=== PATIENT | female | born 1950 | race Caucasian/White ===

== ENCOUNTER 2021-07-12 18:07 | Observation (INO) ==
[2021-07-12 18:54] LABS: Hematocrit 47.9 % (35.3-44.9); Hemoglobin 15.8 g/dL (11.5-15.4); Immature Granulocytes % 0.2 % (0-4); Lymphocytes % 25.3 %; Mean Corpuscular Volume 90.9 fL (83.0-100.0); Mean Platelet Volume 9.7 fL (9.4-12.4); Platelet Count 175 K/mcL (140-400); Red Blood Count 5.27 M/mcL (3.82-4.97); Red Cell Distribution Width 12.5 % (11.5-14.5); Segmented Neutrophils % 64.5 %; White Blood Count 6.4 K/mcL (4.3-11.1)
[2021-07-12 18:55] LABS: Basophils % 0.5 %; Eosinophils # 0.1 K/mcL (0.0-0.6); Eosinophils % 1.3 %; Lymphocytes # 1.6 K/mcL (0.6-4.6); Monocytes # 0.5 K/mcL (0.0-1.3); Monocytes % 8.2 %; Neutrophils # 4.1 K/mcL (1.6-8.9)
[2021-07-12 19:15] LABS: BUN/Creatinine Ratio 16 (6-26); Blood Urea Nitrogen 12 mg/dL (8-23); Calcium 10.1 mg/dL (8.6-10.3); Carbon Dioxide 27 mEq/L (23-29); Chloride 106 mEq/L (98-107); Glucose 107 mg/dL (70-105); Osmolality,Calculated 294 (280-300); Potassium 3.6 mEq/L (3.5-5.1); Sodium 142 mEq/L (136-145); Troponin I < 0.03 ng/mL (< 0.04); eGFR For African Americans > 60 (> 60); eGFR For Non-African Americans > 60 (> 60)
[2021-07-12 22:53] LABS: Alanine Aminotransferase 16 Units/L (7-52); Albumin 4.8 g/dL (3.5-5.7); Albumin/Globulin Ratio 1.9 (1.1-2.2); Alkaline Phosphatase 80 Units/L (34-104); Aspartate Amino Transferase 17 Units/L (13-39); Bilirubin,Direct 0.1 mg/dL (0.0-0.2); Bilirubin,Indirect 0.5 mg/dL (0.0-1.0); Bilirubin,Total 0.6 mg/dL (0.3-1.0); Globulin 2.5 g/dL (2.4-3.5); Lipase 21 Units/L (11-82); Total Protein 7.3 g/dL (6.4-8.9)
[2021-07-12] MEDS ORDERED: Aspirin 325 MG TABLET PO ONE (23:40)
[2021-07-13 00:39] VITALS: BP 182/83; PULSE 66; TEMP 98.1; O2SAT 96
[2021-07-13 00:57] LABS: Influenza A PCR Negative (Negative); Influenza B PCR Negative (Negative); Resp. Syncytial Virus PCR Negative (Negative)
[2021-07-13 00:58] LABS: SARS-CoV-2 by PCR (In House) Negative (Negative)
[2021-07-13] MEDS ORDERED: Naloxone 0.4 MG/ML INJ IVP PRN (02:50)
[2021-07-13] MEDS ORDERED: Perflutren Lipid Microsphere 1.3 ML in 0.9 % Sodium Chloride 8.7 ML IVP PRN (02:50)
[2021-07-13] MEDS ORDERED: Acetaminophen 325 MG TABLET PO PRN (03:01)
[2021-07-13] MEDS ORDERED: Ondansetron 4 MG/2 ML VIAL IVP PRN (03:01)
[2021-07-13] MEDS ORDERED: Nitroglycerin 0.4 MG TAB.SUBL SL PRN (03:11)
[2021-07-13] MEDS ORDERED: Morphine Sulfate 2 MG/ML SYRINGE IVP PRN (04:00)
[2021-07-13 05:00] LABS: Hematocrit 43.9 % (35.3-44.9); Hemoglobin 14.8 g/dL (11.5-15.4); Mean Corpuscular HGB Conc 33.7 g/dL (31.6-35.5); Mean Corpuscular Hemoglobin 30.4 pg (28.0-33.3); Mean Corpuscular Volume 90.1 fL (83.0-100.0); Mean Platelet Volume 9.7 fL (9.4-12.4); Platelet Count 168 K/mcL (140-400); Red Blood Count 4.87 M/mcL (3.82-4.97); Red Cell Distribution Width 12.5 % (11.5-14.5); White Blood Count 5.8 K/mcL (4.3-11.1)
[2021-07-13 05:10] LABS: % Iron Saturation 23 % (15-50); BUN/Creatinine Ratio 18 (6-26); Blood Urea Nitrogen 13 mg/dL (8-23); Calcium 9.3 mg/dL (8.6-10.3); Carbon Dioxide 26 mEq/L (23-29); Chloride 106 mEq/L (98-107); Chol/HDL Ratio 2.7 (0-4.9); Cholesterol 176 mg/dL (< 200); Glucose 97 mg/dL (70-105); HDL Cholesterol 65 mg/dL (40-59); Iron 75 mcg/dL (50-170); LDL Cholesterol,Calculated 96 mg/dL (< 100); Magnesium 2.1 mg/dL (1.6-2.6); Osmolality,Calculated 290 (280-300); Potassium 3.5 mEq/L (3.5-5.1); Sodium 140 mEq/L (136-145); Transferrin 228 mg/dL (203-362); Triglycerides 74 mg/dL (< 150); Troponin I < 0.03 ng/mL (< 0.04); eGFR For African Americans > 60 (> 60); eGFR For Non-African Americans > 60 (> 60)
[2021-07-13 05:21] LABS: Thyroid Stimulating Hormone 1.179 mcIU/mL (0.340-5.600)
[2021-07-13 05:26] LABS: Ferritin 43 ng/mL (10-120)
[2021-07-13 05:29] LABS: Folate 17.7 ng/mL (3.0-16.0)
[2021-07-13 05:33] LABS: Prothrombin Time 11.2 Seconds (9.4-12.1)
[2021-07-13 05:35] LABS: Activated Partial Thrombo Time 30.2 Seconds (26.0-36.0)
[2021-07-13] MEDS ORDERED: *HR* Heparin 5,000 UNIT/ML VIAL SQ SCH (06:00)
[2021-07-13] MEDS ORDERED: Regadenoson 0.4 MG/5 ML SYRINGE IVP ONE (06:21)
[2021-07-13] MEDS ORDERED: hydroCHLOROthiazide 25 MG TABLET PO SCH (09:00)
[2021-07-13] MEDS ORDERED: METOPROLOL SU PO SCH (09:00)
[2021-07-13] MEDS ORDERED: NIFEdipine XL (24 HR) 30 MG TAB.ER.24 PO SCH ×2 (09:00→21:00)
[2021-07-13] MEDS ORDERED: Metoprolol XL (24 HR) Succ 25 MG TAB.ER.24H PO SCH (09:00)
[2021-07-13] MEDS ORDERED: Cyanocobalamin (B-12) 1,000 MCG TABLET PO SCH (09:00)
[2021-07-13] MEDS ORDERED: HYDROCHLOROTHIAZ PO SCH (09:00)
[2021-07-13] MEDS ORDERED: Aspirin Enteric Coated 81 MG Tablet PO SCH (09:00)
[2021-07-13] MEDS ORDERED: [UNRECOGNIZED DRUG - OTHER] PO SCH (09:00)
[2021-07-13] MEDS ORDERED: *HR* Metoprolol 5 MG/5 ML VIAL IVP ONE (10:04)
[2021-07-13 13:47] LABS: Estimated Average Glucose 117 mg/dl; Hemoglobin A1C 5.7 %
== END 2021-07-13 12:01 | disposition home or self-care (01) ==
LOC: 3BNU 18:07 → EMEROOARM 18:07 → 3BNU 07-13 00:26
PROVIDERS: ADMIT Internal Medicine; ATTEND Internal Medicine